=== PATIENT | male | born 1965 | race Caucasian/White ===

== ENCOUNTER 2020-12-02 05:55 | Inpatient (IN) | payer MEDICAID ==
[~2020-12-02] VITALS: Ht 185.4 cm; Wt 95.3 kg
--- NOTE | 2020-12-02 05:55 | NUR ---
[id number] FROM [facility] FOR SOB. 02 SAT 88%. RA UNABLE TO ADMIT CPAP OR BREATHING TX D/T REMOVING TUBES. , PT TO BED 5, PLACED ON MONITOR, GOWNED, PIV STARTED. ER MD AND RT AT BEDSIDE FOR EVAL
[2020-12-02] MEDS ORDERED: ALBUTEROL FS 2.5 MG/3 ML VIAL.NEB CONTNEB ONE (06:00)
[2020-12-02] MEDS ORDERED: methylPREDNISolone SOD SUCC 125 MG/2ML VIAL IV ONE (06:00)
[2020-12-02] MEDS ORDERED: Magnesium 1GM/D5W 100ML PREMIX 200 ML IV ONE ×2 (06:00→06:27)
[2020-12-02] MEDS ORDERED: IPRATROPIUM NEB FS 0.5 MG/2.5 ML AMPUL.NEB NEB ONE (06:00)
[2020-12-02] MEDS ORDERED: TERBUTALINE SULFATE 1 MG/ML VIAL SQ ONE (06:00)
[2020-12-02] MEDS ORDERED: TERBUTALINE SULFATE 1 MG/ML VIAL ONE (06:27)
[2020-12-02] MEDS ORDERED: methylPREDNISolone SOD SUCC 125 MG/2ML VIAL ONE (06:27)
[2020-12-02 06:42] LABS: BASOPHILS # (AUTO) 0.1 /CMM (0.0-0.2); BASOPHILS % (AUTO) 1.4 % (0.0-2.0); EOSINOPHILS % (AUTO) 8.7 % (0.0-6.0); HEMATOCRIT 43 % (39-51); HEMOGLOBIN 14.4 g/dL (13.5-17.5); LYMPHOCYTES # (AUTO) 1.9 /CMM (0.8-4.8); LYMPHOCYTES % (AUTO) 29.1 % (20.0-44.0); MEAN CORPUSCULAR HGB CONC 34 g/dl (31.0-36.0); MEAN CORPUSCULAR VOLUME 86 fL (80-96); MONOCYTES # (AUTO) 0.7 /CMM (0.1-1.30); MONOCYTES % (AUTO) 10.3 % (2.0-12.0); NEUTROPHILS # (AUTO) 3.3 /CMM (1.8-8.9); NEUTROPHILS % (AUTO) 50.5 % (43.0-81.0); PLATELET COUNT (AUTO) 220 /CMM (150-450); RED BLOOD CELL COUNT(AUTO) 4.98 MIL/uL (4.5-6.0); WHITE BLOOD COUNT (AUTO) 6.5 K/uL (4.3-11.0)
[2020-12-02] MEDS ORDERED: ALBUTEROL FS 2.5 MG/3 ML VIAL.NEB ONE (06:42)
[2020-12-02] MEDS ORDERED: IPRATROPIUM NEB FS 0.5 MG/2.5 ML AMPUL.NEB ONE (06:42)
[2020-12-02 07:18] LABS: ALANINE AMINOTRANSFERASE 38 U/L (12-78); ALBUMIN 3.7 g/dL (3.4-5.0); ALKALINE PHOSPHATASE 78 U/L (46-116); ASPARTATE AMINOTRANSFERASE 33 U/L (15-37); BILIRUBIN,DIRECT 0.1 mg/dL (0.0-0.2); BILIRUBIN,TOTAL 0.4 mg/dL (0.2-1.0); CALCIUM, SERUM 8.7 mg/dL (8.5-10.1); CARBON DIOXIDE 23 mmol/L (21-32); CREATININE 0.9 mg/dL (0.6-1.3); GLUCOSE 175 mg/dL (74-106); UREA NITROGEN, BLOOD 21 mg/dL (7-18)
[2020-12-02 07:31] LABS: CHLORIDE 104 mmol/L (98-107); POTASSIUM 3.8 mmol/L (3.5-5.1); SODIUM SERUM 141 mmol/L (136-145)
[2020-12-02] MEDS ORDERED: IV NS 0.9% 1,000 ML BAG IV ONE (08:30)
--- NOTE | 2020-12-02 08:36 | NUR ---
CALLED NURSING SUP FOR TELE BED.
--- NOTE | 2020-12-02 09:33 | NUR ---
room [id number]
--- NOTE | 2020-12-02 10:10 | NUR ---
wheeled patient via gurney accompanied by EMT and rn in no distress. RN at bedside to assume care.
--- NOTE | 2020-12-02 10:15 | NUR ---
Received patient from ER, ambulatory, on 2L of O2, SPO2 99%, denies pain, no sob noted, respirations even and unlabored, bed locked, in lowest position, will cont to monitor
--- NOTE | 2020-12-02 10:30 | NUR ---
Connected to tele-monitor NSR 78
[2020-12-02] MEDS: IPRATROPIUM NEB FS 0.5 MG/2.5 ML AMPUL.NEB NEB SCH ×4 (11:30→23:39)
[2020-12-02] MEDS: ALBUTEROL FS 2.5 MG/0.5 ML VIAL.NEB NEB SCH ×4 (11:30→23:39)
[2020-12-02 12:00] VITALS: BP 145/85
[2020-12-02] MEDS ORDERED: ZOLPIDEM TARTRATE 5 MG TABLET PO PRN (13:30)
[2020-12-02] MEDS ORDERED: Z GUARD REMEDY 2 OZ OINT TP PRN (13:30)
[2020-12-02] MEDS ORDERED: ONDANSETRON HCL/PF 4 MG/2 ML VIAL IVP PRN (13:30)
[2020-12-02] MEDS ORDERED: ACETAMINOPHEN 325 MG TABLET PO PRN (13:30)
[2020-12-02] MEDS: methylPREDNISolone SOD SUCC 125 MG/2ML VIAL IV SCH ×2 (14:41→20:30)
[2020-12-02] MEDS: ENOXAPARIN SODIUM 40 MG/0.4 ML DISP.SYRIN SQ SCH (14:41)
[2020-12-02] MEDS: IV NS 0.9% 1,000 ML IV PRN (15:06)
[2020-12-02 16:00] VITALS: BP 151/81
[2020-12-02] MEDS: CEFTRIAXONE 2 G in IV D5W 100 ML IV SCH (16:07)
[2020-12-02] MEDS ORDERED: FLUTICASONE/SALMETEROL DISKUS IH SCH (17:00)
[2020-12-02] MEDS ORDERED: DOXYCYCLINE 200 MG in IV D5W 250 ML IV SCH (17:00)
--- NOTE | 2020-12-02 19:04 | NUR ---
RN CLOSING NOTE REMANS IN ROOM, RESTING COMFORTABLY, STABLE, WILL ENDORSE TO PM SHIFT RN FOR KELLY
[2020-12-02 20:00] VITALS: BP 146/72
--- NOTE | 2020-12-02 20:00 | NUR ---
RN OPENING NOTES PATIENT IN BED, A/OX4, ON 02 AT 4LITERS VIA NC WITH SPO2 95%, NO SOB NO DISTRESS NOTED BREATHING EVEN UNLABORED,NO COMPLAIN OF PAIN 0/10 NO FACIAL GRIMACES NOTED ,BREATHING TREATMENT GIVEN BY RT ,DUE MEDS GIVEN ORDERED RESTING COMFORTABLY, IV LINE AT LEFT AC g20 PATENT& INTACT, RUNNING IV FLUIDS NS AT 75CC/HR TOLERATING WELL, HOB ELEVATED, BED LOCKED, IN LOWEST POSITION, CALL LIGHT IN REACH, WILL CONT TO MONITOR V/S STABLE AFEBRILE.
[2020-12-03] MEDS: IPRATROPIUM NEB FS 0.5 MG/2.5 ML AMPUL.NEB NEB SCH ×6 (03:38→23:41)
[2020-12-03] MEDS: ALBUTEROL FS 2.5 MG/0.5 ML VIAL.NEB NEB SCH ×6 (03:38→23:41)
[2020-12-03 04:00] VITALS: BP 127/60
[2020-12-03] MEDS: methylPREDNISolone SOD SUCC 125 MG/2ML VIAL IV SCH ×3 (04:19→22:50)
[2020-12-03 06:18] LABS: BASOPHILS % (AUTO) 0.2 % (0.0-2.0); HEMATOCRIT 44 % (39-51); HEMOGLOBIN 14.7 g/dL (13.5-17.5); LYMPHOCYTES # (AUTO) 0.6 /CMM (0.8-4.8); MEAN CORPUSCULAR HGB CONC 33 g/dl (31.0-36.0); MEAN CORPUSCULAR VOLUME 86 fL (80-96); MONOCYTES # (AUTO) 0.4 /CMM (0.1-1.30); MONOCYTES % (AUTO) 2.7 % (2.0-12.0); NEUTROPHILS # (AUTO) 13.5 /CMM (1.8-8.9); NEUTROPHILS % (AUTO) 93.1 % (43.0-81.0); PLATELET COUNT (AUTO) 227 /CMM (150-450); RED BLOOD CELL COUNT(AUTO) 5.14 MIL/uL (4.5-6.0); WHITE BLOOD COUNT (AUTO) 14.5 K/uL (4.3-11.0)
[2020-12-03] MEDS: IV NS 0.9% 1,000 ML IV PRN ×2 (06:31→22:43)
[2020-12-03 06:37] LABS: CALCIUM, SERUM 8.7 mg/dL (8.5-10.1); CREATININE 0.7 mg/dL (0.6-1.3); MAGNESIUM 2.2 mg/dL (1.8-2.4); PHOSPHORUS 3.8 mg/dL (2.5-4.9); POTASSIUM 4.3 mmol/L (3.5-5.1)
--- NOTE | 2020-12-03 07:18 | NUR ---
RN CLOSING NOTE: PATIENT REMAINS IN ROOM IN NO SIGNS OF RESPIRATORY DISTRESS, PATIENT STILL ON 4L OF 02 VIA NC;TOLERATING WELL SATURATING @ >95% SP02. SAFETY MEASURES IMPLEMENTED, BED IN LOWEST POSITION, LOCKED, SIDE RAILS UP, CALL LIGHT WITHIN REACH. ALL NEEDS AND ORDERS ADDRESSED DURING THE SHIFT. IV ACCESS MAINTAINED INTACT, SECURED AND FLUSHING WELL. ALL DUE MEDS GIVEN ORDERED & SCHEDULED ; PATIENT TOLERATED WELL. PATIENT KEPT CLEAN AND COMFORTABLE WITHIN THE SHIFT. PATIENT ENDORSED TO INCOMING SHIFT RN WITH STABLE VITAL SIGN AND FOR CONTINUITY OF CARE.
[2020-12-03] MEDS: PANTOPRAZOLE 40 MG TABLET.DR PO SCH (07:30)
--- NOTE | 2020-12-03 07:30 | NUR ---
RN OPENING NOTES PATIENT PRESENT IN BED, AWAKE, A//OX4, ON NC WITH O2 FLOW OF 4L, TOLERATING WELL, SPO2 98%, NO SOB OR DISTRESS NOTED, DENIES PAIN, IV LINE PATENT AND INTACT, URINAL AT BED SITE, SAFETY MEASURES IMPLEMENTED, BED LOCKED, IN LOWEST POSITION, WILL CONT TO MONITOR
[2020-12-03 08:47] LABS: THYROID STIMULATING HORMONE 0.195 uIU/mL (0.358-3.74)
[2020-12-03] MEDS: FLUTICASONE/VILANTEROL 1 EACH BLST.W.DEV IH SCH (09:43)
[2020-12-03] MEDS: DOXYCYCLINE 100 MG in IV D5W 100 ML IV SCH ×2 (11:56→22:44)
[2020-12-03 12:00] VITALS: BP 127/60
[2020-12-03] MEDS: CEFTRIAXONE 2 G in IV D5W 100 ML IV SCH (15:39)
--- NOTE | 2020-12-03 18:49 | NUR ---
RN CLOSING NOTES NO ACUTE CHANGES DURING SHIFT, SLEEPING, FLUIDS AND NUTRITION PROVIDED, MEDICATIONS GIVEN, SAFETY PRECAUTIONS IN PLACE, BED LOCKED, IN LOWEST POSITION, BED ALARM ON, WILL ENDORSE TO PM SHIFT RN FOR KELLY
[2020-12-03 20:00] VITALS: BP 112/50
[2020-12-03] MEDS: ENOXAPARIN SODIUM 40 MG/0.4 ML DISP.SYRIN SQ SCH (23:01)
[2020-12-04] MEDS: IPRATROPIUM NEB FS 0.5 MG/2.5 ML AMPUL.NEB NEB SCH ×3 (03:01→10:37)
[2020-12-04] MEDS: ALBUTEROL FS 2.5 MG/0.5 ML VIAL.NEB NEB SCH ×3 (03:01→10:37)
[2020-12-04 04:00] VITALS: BP 119/58
--- NOTE | 2020-12-04 04:08 | NUR ---
RN notes Alert and oriented. Verbally able to communicate needs. No distress noted. Breathing even and unlabored. On 4 lpm via nasal cannula tolerating well. No complaint of pain or discomfort. Requested for sleeping pill, gave ambien with help. No significant change of condition. Vital signs wnl. Kept clean and dry. will endorse to next shift for continuity of care.
[2020-12-04] MEDS: methylPREDNISolone SOD SUCC 125 MG/2ML VIAL IV SCH ×2 (06:22→13:37)
--- NOTE | 2020-12-04 08:00 | NUR ---
rn notes RECEIVED PATIENT NO ACUTE RESPIRATORY DISTRESS ON DX OF ASTHMA WITH EXACERBATION. A/O X4, ON O2-4LNC, NO SOB NOTES. INFUSING NS @ 75 ML/HR ON LEFT AC AREA INTACT. PATIENT TOLERATED BREAKFAST WELL, MEDICATIONS GIVEN, SAFETY PRECAUTIONS IN PLACE, BED LOCKED, IN LOWEST POSITION, BED ALARM ON. CALL LIGHT WITHIN TO REACH. WILL MONITORING.
[2020-12-04] MEDS: PANTOPRAZOLE 40 MG TABLET.DR PO SCH (08:55)
[2020-12-04] MEDS: FLUTICASONE/VILANTEROL 1 EACH BLST.W.DEV IH SCH (08:56)
[2020-12-04] MEDS: DOXYCYCLINE 100 MG in IV D5W 100 ML IV SCH (11:31)
[2020-12-04 12:00] VITALS: BP 147/69
[2020-12-04] MEDS ORDERED: DOXY100C41 PO (12:16)
[2020-12-04] MEDS ORDERED: ALBU8.5H8 INH (12:16)
[2020-12-04] MEDS ORDERED: AMOX-427 PO (12:16)
[2020-12-04] MEDS ORDERED: FLUT1BLS IH (12:16)
[2020-12-04] MEDS ORDERED: PRED20TA PO (12:16)
--- NOTE | 2020-12-04 14:00 | NUR ---
RN NOTES PATIENT WILLING D/C HIS [facility], AFTER SEEN HOSPITALIST MIKE MEDINA, AND PRESCRIBED CHEST CT IF STABLE. PATIENT GO HOME IF CT STABLE.
--- NOTE | 2020-12-04 14:18 | NUR ---
staff rn notes Patient will follow up with his primary care physician and obtain his medical records from this visit. patient stable to discharge home self care. patient a/ox4, no sob, ambulatory, denied pain. med reconciliation and discharge order reviewed and explained to the patient. patient verbalized understanding, sign paperwork. clothing given from hospital. escorted patient to the lobby for safety.
== END 2020-12-04 14:53 | disposition home or self-care (01) | DRG 145 ==
LOC: EDBD 05:55 → ER 05:55 → TELE-TD 09:40 → TELE1 10:20 → MEDSG1 15:02
PROVIDERS: ADMIT Nurse Practitioner Acute Care; ATTEND Nurse Practitioner Acute Care
DX: J20.9 Acute bronchitis, unspecified (principal); J96.01 Acute respiratory failure with hypoxia; N17.0 Acute kidney failure with tubular necrosis; F15.90 Other stimulant use, unspecified, uncomplicated; E87.2 Acidosis; Z79.51 Long term (current) use of inhaled steroids; Z87.891 Personal history of nicotine dependence
CPT/HCPCS: 36415; 71045-TC; 71250-TC; 80048-TC; 80061-TC; 80076-TC; 83605-TC; 83735-TC; 84100-TC; 84443-TC; 85025-TC; 87040-TC; 87070-TC; 87081-TC; 94760-TC; 94799-TC; A6253; C9803; G0378; J0696; J1650; J2930; J3105; J3475; J3490; J7030; J7060; U0003